=== PATIENT | female | born 1945 | race Caucasian/White ===

== ENCOUNTER 2020-06-08 13:37 | Inpatient (IN) | payer MEDICARE ==
[2020-06-08] MEDS ORDERED: SODIUM CHLORIDE 0.9% 500 ML 500 ML IV STA (14:31)
--- NOTE | 2020-06-08 14:35 | ED ---
General Adult HPI <Justice Stockton - Last Filed: 06/08/20 15:59> - General Source: patient Mode of arrival: wheelchair Limitations: no limitations <Jesus Bright - Last Filed: 06/08/20 19:04> - General Chief complaint: Weakness Stated complaint: Poss Stroke Time Seen by Provider: 06/08/20 14:06 - History of Present Illness Initial comments: 75-year-old female with a past medical history of diabetes mellitus, hypertension presents to the emergency room for a chief complaint of right leg weakness. Patient states that 2 days ago she was standing at her kitchen sink. States her right leg became weak and buckled. Patient thought her left leg also felt somewhat weak however that resolved. Patient states her right leg has remained weak and has continued to buckle on her throughout the day yesterday. She figured she would give it yesterday to see if it improved. However since it did not get better this morning she called her doctor who recommended she come to the emergency room. Patient denies taking any blood thinners. Patient denies any other concerning symptoms.Patient has no other complaints at this time including shortness of breath, chest pain, abdominal pain, nausea or vomiting, headache, or visual changes. (Jesus Bright) - Related Data Home Medications Medication Instructions Recorded Confirmed Metoprolol Tartrate [Lopressor] 100 mg PO BID 06/08/20 06/08/20 Simvastatin [Zocor] 20 mg PO HS 06/08/20 06/08/20 amLODIPine BESYLATE [Norvasc] 2.5 mg PO DAILY 06/08/20 06/08/20 glipiZIDE [Glucotrol] 10 mg PO BID 06/08/20 06/08/20 lisinopriL 40 mg PO HS 06/08/20 06/08/20 metFORMIN HCL 1,000 mg PO BID 06/08/20 06/08/20 Allergies Allergy/AdvReac Type Severity Reaction Status Date / Time Penicillins Allergy Rash/Hives Verified 06/08/20 15:51 Review of Systems ROS Other: All systems not noted in ROS Statement are negative. <Justice Stockton - Last Filed: 06/08/20 15:59> ROS Other: All systems not noted in ROS Statement are negative. <Kaila,Jesus P - Last Filed: 06/08/20 19:04> ROS Statement: Those systems with pertinent positive or pertinent negative responses have been documented in the HPI. Past Medical History Past Medical History: Diabetes Mellitus, Hypertension History of Any Multi-Drug Resistant Organisms: None Reported Past Surgical History: Hysterectomy Past Psychological History: No Psychological Hx Reported Smoking Status: Former smoker Past Alcohol Use History: None Reported Past Drug Use History: None Reported <Jesus Bright P - Last Filed: 06/08/20 19:04> General Exam Limitations: no limitations General appearance: alert, in no apparent distress Head exam: Present: atraumatic, normal inspection Eye exam: Present: normal appearance, PERRL, EOMI. Absent: scleral icterus, co njunctival injection ENT exam: Present: normal exam, mucous membranes moist Neck exam: Present: normal inspection, full ROM. Absent: tenderness, meni ngismus, lymphadenopathy Respiratory exam: Present: normal lung sounds bilaterally. Absent: respiratory distress, wheezes, rales, rhonchi, stridor Cardiovascular Exam: Present: regular rate, normal rhythm, normal heart sounds. Absent: systolic murmur, diastolic murmur, rubs, gallop, clicks GI/Abdominal exam: Present: soft, normal bowel sounds. Absent: distended, tenderness, guarding, rebound, rigid Extremities exam: Present: normal capillary refill (Capillary refill less than 2 seconds, DP pulse 2+ right lower extremity) Neurological exam: Present: alert, oriented X3. Absent: normal gait (Unable to bear weight on the right leg) Expanded Patient oriented to: Present: person, place, time Speech: Present: fluid speech Cranial nerves: EOM's Intact: Normal, Tongue Deviation: Normal, Nystagmus: Normal, Facial Sensation: Normal Cerebellar function: Finger to Nose: Normal Upper motor neuron: Pronator Drift: Normal Sensory exam: Upper Extremity Light Touch: Normal, Upper Extremity Pin Prick: Normal, Lower Extremity Light Touch: Normal, Lower Extremity Pin Prick: Normal Motor strength exam: RUE: 5, LUE: 5, RLE: 3, LLE: 5 Eye Response: (4) open spontaneously Motor Response: (6) obeys commands Verbal Response: (5) oriented <Jesus Bright P - Last Filed: 06/08/20 19:04> Course <Justice Stockton - Last Filed: 06/08/20 15:59> Vital Signs 06/08/20 06/08/20 06/08/20 13:44 14:20 15:13 Temperature 98 F Pulse Rate 102 H 94 98 Respiratory 18 16 16 Rate Blood Pressure 180/92 186/107 161/117 O2 Sat by Pulse 99 98 97 Oximetry 06/08/20 06/08/20 17:15 17:33 Temperature Pulse Rate 87 91 Respiratory 16 16 Rate Blood Pressure 193/109 174/98 O2 Sat by Pulse 98 98 Oximetry - Reevaluation(s) Reevaluation #1: 06/08/20 16:02 75-year-old female with history and exam suggestive of CVA. She has an NIH of 1. She has been symptomatic for 2 days, along outside of TPA window. CT is negative for intracranial hemorrhage. She's given an aspirin in the emergency department. Given the new onset atrial fibrillation I did discuss case with Dr. Townsend who recommends heparin, no bolus. Patient will be admitted with both cardiology and neurology on consult. (Justice Stockton) EKG Findings - EKG Comments: EKG Findings:: Atrial fibrillation, ventricular rate 96, QRS duration 134, QTc 469 <Jesus Bright - Last Filed: 06/08/20 19:04> Medical Decision Making - Lab Data Result diagrams: 06/08/20 14:33 06/08/20 14:33 <Justice Stockton - Last Filed: 06/08/20 15:59> - Lab Data Result diagrams: 06/08/20 14:33 06/08/20 14:33 <Jesus Bright - Last Filed: 06/08/20 19:04> - Medical Decision Making Vitals are stable. Patient hypertensive which she does have a history of. CBC unremarkable. CMP does show hyperglycemia. Patient has a history of diabetes. EKG patient was found to be in atrial fibrillation. No history of this. Patient is not on any blood thinners. Troponin negative. Chest x-ray unremarkable. CT brain is normal. Given physical exam findings of weakness in the right leg and new-onset atrial fibrillation patient will be admitted for further management. Neurology consulted. (Jesus Bright) - Lab Data Lab Results 06/08/20 06/08/20 06/08/20 Range/Units 14:33 14:33 14:33 WBC 9.7 (3.8-10.6) k/uL RBC 4.54 (3.80-5.40) m/uL Hgb 13.4 (11.4-16.0) gm/dL Hct 38.5 (34.0-46.0) % MCV 85.0 (80.0-100.0) fL MCH 29.6 (25.0-35.0) pg MCHC 34.8 (31.0-37.0) g/dL RDW 13.7 (11.5-15.5) % Plt Count 359 (150-450) k/uL MPV 7.2 Neutrophils % 82 % Lymphocytes % 12 % Monocytes % 4 % Eosinophils % 1 % Basophils % 1 % Neutrophils # 8.0 H (1.3-7.7) k/uL Lymphocytes # 1.1 (1.0-4.8) k/uL Monocytes # 0.4 (0-1.0) k/uL Eosinophils # 0.1 (0-0.7) k/uL Basophils # 0.1 (0-0.2) k/uL PT 10.4 (9.0-12.0) sec INR 1.0 (<1.2) APTT 23.7 (22.0-30.0) sec Sodium 130 L (137-145) mmol/L Potassium 4.5 (3.5-5.1) mmol/L Chloride 91 L (98-107) mmol/L Carbon Dioxide 25 (22-30) mmol/L Anion Gap 14 mmol/L BUN 20 H (7-17) mg/dL Creatinine 0.84 (0.52-1.04) mg/dL Est GFR (CKD-EPI)AfAm 78 (>60 ml/min/1.73 sqM) Est GFR (CKD-EPI)NonAf 67 (>60 ml/min/1.73 sqM) Glucose 309 H (74-99) mg/dL Calcium 10.6 H (8.4-10.2) mg/dL Total Bilirubin 1.3 (0.2-1.3) mg/dL AST 30 (14-36) U/L ALT 19 (4-34) U/L Alkaline Phosphatase 81 (38-126) U/L Troponin I (0.000-0.034) ng/mL Total Protein 9.2 H (6.3-8.2) g/dL Albumin 4.3 (3.5-5.0) g/dL 06/08/20 Range/Units 14:33 WBC (3.8-10.6) k/uL RBC (3.80-5.40) m/uL Hgb (11.4-16.0) gm/dL Hct (34.0-46.0) % MCV (80.0-100.0) fL MCH (25.0-35.0) pg MCHC (31.0-37.0) g/dL RDW (11.5-15.5) % Plt Count (150-450) k/uL MPV Neutrophils % % Lymphocytes % % Monocytes % % Eosinophils % % Basophils % % Neutrophils # (1.3-7.7) k/uL Lymphocytes # (1.0-4.8) k/uL Monocytes # (0-1.0) k/uL Eosinophils # (0-0.7) k/uL Basophils # (0-0.2) k/uL PT (9.0-12.0) sec INR (<1.2) APTT (22.0-30.0) sec Sodium (137-145) mmol/L Potassium (3.5-5.1) mmol/L Chloride (98-107) mmol/L Carbon Dioxide (22-30) mmol/L Anion Gap mmol/L BUN (7-17) mg/dL Creatinine (0.52-1.04) mg/dL Est GFR (CKD-EPI)AfAm (>60 ml/min/1.73 sqM) Est GFR (CKD-EPI)NonAf (>60 ml/min/1.73 sqM) Glucose (74-99) mg/dL Calcium (8.4-10.2) mg/dL Total Bilirubin (0.2-1.3) mg/dL AST (14-36) U/L ALT (4-34) U/L Alkaline Phosphatase (38-126) U/L Troponin I <0.012 (0.000-0.034) ng/mL Total Protein (6.3-8.2) g/dL Albumin (3.5-5.0) g/dL Critical Care Time Critical Care Time: Yes Total Critical Care Time: 35 <Justice Stockton - Last Filed: 06/08/20 15:59> Disposition Is patient prescribed a controlled substance at d/c from ED?: No Decision to Admit Reason: Admit from EC Decision Date: 06/08/20 Decision Time: 16:04 <Justice Stockton - Last Filed: 06/08/20 15:59> Is patient prescribed a controlled substance at d/c from ED?: No <Jesus Bright - Last Filed: 06/08/20 19:04> Clinical Impression: CVA (cerebral vascular accident), New onset a-fib Disposition: ADMITTED IP TO THIS [facility] Condition: Stable
[2020-06-08 14:37] LABS: WBC 9.7 k/uL (3.8-10.6)
[2020-06-08 14:38] LABS: Basophils # (A) 0.1 k/uL (0-0.2); Basophils % (A) 1 %; Eosinophils # (A) 0.1 k/uL (0-0.7); Eosinophils % (A) 1 %; HCT 38.5 % (34.0-46.0); HGB 13.4 gm/dL (11.4-16.0); Lymphocytes # (A) 1.1 k/uL (1.0-4.8); Lymphocytes % (A) 12 %; MCH 29.6 pg (25.0-35.0); MCHC 34.8 g/dL (31.0-37.0); Mean Platelet Volume 7.2; Monocytes # (A) 0.4 k/uL (0-1.0); Monocytes % (A) 4 %; Neutrophils % (A) 82 %; Platelet Count 359 k/uL (150-450); RBC 4.54 m/uL (3.80-5.40); RDW 13.7 % (11.5-15.5)
[2020-06-08 14:49] LABS: Albumin 4.3 g/dL (3.5-5.0); Calcium 10.6 mg/dL (8.4-10.2); Potassium 4.5 mmol/L (3.5-5.1); Total Bilirubin 1.3 mg/dL (0.2-1.3); Total Protein 9.2 g/dL (6.3-8.2)
[2020-06-08 14:51] LABS: Partial Thromboplastin Time 23.7 sec (22.0-30.0); Prothrombin Time 10.4 sec (9.0-12.0)
--- NOTE | 2020-06-08 15:15 | CT ---
EXAMINATION TYPE: CT brain wo con DATE OF EXAM: 06/08/2020 COMPARISON: None INDICATION: Unsteady gait. DLP: 1076.4 mGycm, Automated exposure control for dose reduction was used. CONTRAST: None CT of the brain is performed utilizing 3 mm thick sections through the posterior fossa and 3 mm thick sections through the remaining calvarium. Study is performed within 24 hours of arrival to the hosp ital. No abnormal hyperdensity is present to suggest an acute intracranial hemorrhage. No mass lesion is evident. No acute infarcts are evident. Periventricular white matter hypodensity is present, likely on the bas is of chronic white matter ischemic changes Ventricles and sulci are appropriate for the patient age. Paranasal sinuses and mastoid air cells within the [id number] are clear. Left septal deviation is present. IMPRESSIONS: 1. Normal CT Brain
--- NOTE | 2020-06-08 15:47 | XR ---
EXAMINATION TYPE: XR chest 2V DATE OF EXAM: 06/08/2020 COMPARISON: None HISTORY: 75-year-old female confusion, altered mental status TECHNIQUE: AP and lateral views FINDINGS: Heart borderline in size. Atherosclerotic calcifications throughout the aorta. Mild hyperinflation. N o consolidation or pleural effusion. IMPRESSION: Borderline heart size. Mild hyperinflation may relate to depth of inspiration or underlying emphysema . Otherwise, no acute process seen.
[2020-06-08] MEDS ORDERED: ASPIRIN 325 MG TAB PO STA (15:55)
[2020-06-08] MEDS ORDERED: HEPARIN SODIUM,PORCINE 5,000 UNIT/ML 1 ML VIAL IV PRN (15:59)
[2020-06-08] MEDS: SODIUM CHLORIDE 0.9% 1,000 ML IV SCH (16:13)
[2020-06-08] MEDS: HEPARIN SOD,PORK IN 0.45% NACL 25,000 UNIT in 0.45% NACL 1 250ML.BAG IV SCH (16:14)
--- NOTE | 2020-06-08 16:54 | P.HPIM ---
History of Present Illness H&P Date: 06/08/20 Chief Complaint: Right lower extremity weakness This is a 75-year-old female with past medical history noted below significant for underlying diabetes and essential hypertension who presented to the emergency room with a chief complaint of right lower extremity weakness. Ervin de souza said that her symptoms started yesterday when she felt that her legs ''buckled up''on her and was not able to stand. She reported some weakness in both left and right leg worse in the right leg. She said that she went to bed and today she got up and noted that she was having difficulty walking around with some weakness in her right lower extremity so she decided to come to the emergency room for further evaluation. Patient denies any pain. No fall or trauma. No numbness or tingling anywhere in her body. No weakness otherwise anywhere in her body. Patient was evaluated in the ER and was found to be in atrial fibrillation which is a new onset diagnosis. Heart rate was well contro lled. Patient denies any abnormal heart rhythm in the past. She currently denies any weakness in her lower extremities. On my physical exam she had 5 out of 5 strength throughout. Review of Systems Review of system: 14 points review of systems were obtained and were negative except to what were mentioned in the HPI. Past Medical History Past Medical History: Diabetes Mellitus, Hypertension History of Any Multi-Drug Resistant Organisms: None Reported Past Surgical History: Hysterectomy Past Psychological History: No Psychological Hx Reported Smoking Status: Former smoker Past Alcohol Use History: None Reported Past Drug Use History: None Reported Medications and Allergies Home Medications Medication Instructions Recorded Confirmed Type Metoprolol Tartrate [Lopressor] 100 mg PO BID 06/08/20 06/08/20 History Simvastatin [Zocor] 20 mg PO HS 06/08/20 06/08/20 History amLODIPine BESYLATE [Norvasc] 2.5 mg PO DAILY 06/08/20 06/08/20 History glipiZIDE [Glucotrol] 10 mg PO BID 06/08/20 06/08/20 History lisinopriL 40 mg PO HS 06/08/20 06/08/20 History metFORMIN HCL 1,000 mg PO BID 06/08/20 06/08/20 History Allergies Allergy/AdvReac Type Severity Reaction Status Date / Time Penicillins Allergy Rash/Hives Verified 06/08/20 15:51 Physical Exam Vitals: Vital Signs Temp Pulse Resp BP Pulse Ox 06/08/20 15:13 98 16 161/117 97 06/08/20 14:20 94 16 186/107 98 06/08/20 13:44 98 F 102 H 18 180/92 99 Intake and Output 06/08/20 06/08/20 06/08/20 06:59 14:59 22:59 Other: Weight 55.338 kg General: The patient is awake and alert, in no distress Eye: there is normal conjunctiva bilaterally. Neck: The neck is supple, there is no JVD. Cardiovascular: Normal S1-S2, no S3-S4, no murmurs. Respiratory: Lungs clear to auscultation bilaterally Gastrointestinal: Abdomen is soft, nontender Musculoskeletal: There is no pedal edema. Neurological:. Speech is normal. Skin: Skin is warm and dry Results CBC & Chem 7: 06/08/20 14:33 06/08/20 14:33 Labs: Abnormal Lab Results - Last 24 Hours (Table) 06/08/20 06/08/20 Range/Units 14:33 14:33 Neutrophils # 8.0 H (1.3-7.7) k/uL Sodium 130 L (137-145) mmol/L Chloride 91 L (98-107) mmol/L BUN 20 H (7-17) mg/dL Glucose 309 H (74-99) mg/dL Calcium 10.6 H (8.4-10.2) mg/dL Total Protein 9.2 H (6.3-8.2) g/dL Assessment and Plan Assessment: 1. Right lower extremity weakness, now resolved. Exact etiology unclear. Doubt CVA. Computed tomography scan of the head in the ER with no acute findings. Patient denies any low back pain or fall. Neurology consulted for further evaluation. PT/OT consultation 2. New onset atrial fibrillation, rate well controlled. Started on anticoagulation with IV heparin. Continue home dose of metoprolol 100 mg twice daily. 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 I would obtain echocardiogram to evaluate cardiac structure. Check thyroid function test. Cardiology consulted for further evaluation. 3. Hypertensive urgency, I would resume her home regimen of amlodipine, li sinopril, and metoprolol. Continue to monitor closely. 4. Type 2 diabetes, hold oral agents and continue sliding scale insulin. Check A1c. 5. Hyperlipidemia, on Zocor at home. I would switch her to Lipitor 40 mg at bedtime. Check fasting lipid profile in the morning. 6. Essential hypertension 7. DVT prophylaxis currently on IV heparin 8. CODE STATUS: Patient was like to be a full code. Patient's is a [employer] and does not want any blood transfusions whatsoever.
[2020-06-08] MEDS: amLODIPine 2.5 MG TAB PO SCH (17:45)
[2020-06-08 17:46] LABS: Glucose,Whole Blood 180 mg/dL (75-99)
[2020-06-08] MEDS: INSULIN ASPART (NovoLOG) 100 UNIT/ML VIAL SQ SCH ×2 (17:48→21:13)
--- NOTE | 2020-06-08 19:14 | US ---
EXAMINATION TYPE: US carotid duplex BILAT DATE OF EXAM: 06/08/2020 COMPARISON: NONE CLINICAL HISTORY: TIA. EXAM MEASUREMENTS: RIGHT: Peak Systolic Velocity (PSV) cm/sec ----- Right CCA: 51.3 ----- Right ICA: 58.2 ----- Right ECA: 70.3 ICA/CCA ratio: 1.2 RIGHT: End Diastole cm/sec ----- Right CCA: 10.3 ----- Right ICA: 12.1 ----- Right ECA: 0 LEFT: Peak Systolic Velocity (PSV) cm/sec ----- Left CCA: 63.8 ----- Left ICA: 125 ----- Left ECA: 65.6 ICA/CCA ratio: 2.0 LEFT: End Diastole cm/sec ----- Left CCA: 11.9 ----- Left ICA: 27.9 ----- Left ECA: 0 VERTEBRALS (direction of flow): Right Vertebral: Antegrade Left Vertebral: Antegrade Rhythm: Normal IMPRESSION: 1. LICA: Findings suggest 50-69% luminal diameter narrowing. 2. Moderate amount of plaque visualized, left greater than right.
[2020-06-08 20:53] LABS: Glucose,Whole Blood 125 mg/dL (75-99)
[2020-06-08] MEDS: ATORVASTATIN 40 MG TAB PO SCH (21:12)
[2020-06-08] MEDS: METOPROLOL TARTRATE 50 MG TAB PO SCH (21:12)
[2020-06-08] MEDS: lisinopriL 20 MG TAB PO SCH (21:12)
[2020-06-08 21:49] VITALS: RESP 18
[2020-06-09] MEDS: SODIUM CHLORIDE 0.9% 1,000 ML IV SCH (03:03)
[2020-06-09 06:17] LABS: Glucose,Whole Blood 180 mg/dL (75-99)
[2020-06-09 06:18] LABS: Basophils % (A) 1 %; Eosinophils # (A) 0.1 k/uL (0-0.7); Eosinophils % (A) 2 %; HCT 36.5 % (34.0-46.0); HGB 12.3 gm/dL (11.4-16.0); Lymphocytes # (A) 1.4 k/uL (1.0-4.8); Lymphocytes % (A) 27 %; MCHC 33.7 g/dL (31.0-37.0); MCV 86.2 fL (80.0-100.0); Mean Platelet Volume 6.9; Monocytes # (A) 0.3 k/uL (0-1.0); Monocytes % (A) 6 %; Neutrophils # (A) 3.2 k/uL (1.3-7.7); Neutrophils % (A) 61 %; Platelet Count 304 k/uL (150-450); RBC 4.24 m/uL (3.80-5.40); RDW 13.7 % (11.5-15.5); WBC 5.2 k/uL (3.8-10.6)
[2020-06-09] MEDS: INSULIN ASPART (NovoLOG) 100 UNIT/ML VIAL SQ SCH ×4 (06:52→21:51)
[2020-06-09 07:13] LABS: Magnesium 1.3 mg/dL (1.6-2.3)
[2020-06-09] MEDS ORDERED: ASPIRIN 325 MG TAB PO SCH (09:00)
[2020-06-09] MEDS: amLODIPine 2.5 MG TAB PO SCH (09:25)
[2020-06-09] MEDS: METOPROLOL TARTRATE 50 MG TAB PO SCH ×2 (09:25→20:07)
[2020-06-09] MEDS: MAGNESIUM SULFATE-D5W PMX 1 GM in DEXTROSE/WATER 1 100ML.BAG IVPB SCH ×2 (09:25→11:14)
--- NOTE | 2020-06-09 11:00 | ECHOF ---
Referral Reason:New onset A. fib MEASUREMENTS -------- HEIGHT: 167.6 cm WEIGHT: 54.9 kg BP: RVIDd: 2.1 cm (< 3.3) IVSd: 1.1 cm (0.6 - 1.1) LVIDd: 3.5 cm (3.9 - 5.3) LVPWd: 1.2 cm (0.6 - 1.1) IVSs: 1.8 cm LVIDs: 2.0 cm LVPWs: 1.6 cm LAESV Index (A-L): 14.22 ml/m Ao Diam: 2.9 cm (2.0 - 3.7) AV Cusp: 1.5 cm (1.5 - 2.6) LA Diam: 3.6 cm (2.7 - 3.8) MV EXCURSION: 16.095 mm (> 18.000) MV EF SLOPE: 137 mm/s (70 - 150) EPSS: 0.3 cm RAP: 5.00 mmHg RVSP: 15.08 mmHg FINDINGS -------- Atrial fibrillation. This was a technically adequate study. The left ventricular size is normal. There is borderline concentric left ventricular hypertrophy. Overall left ventricular systolic function is normal with, an EF between 55 - 60 %. Left ventricul ar fillimg pressure cannot be estimated due to Atrial fibrillation. The right ventricle is normal in size. Normal LA size by volume 22+/-6 ml/m2. The right atrial size is normal. Interatrial and interventricular septum intact. There is mild aortic valve sclerosis. The mitral valve leaflets are mildly thickened. Mild mitral regurgitation is present. The tricuspid valve appears structurally normal. Mild tricuspid regurgitation present. Right vent ricular systolic pressure is normal at < 35 mmHg. There is no pulmonic regurgitation present. The aortic root size is normal. Normal inferior vena cava with normal inspiratory collapse consistent with estimated right atrial pre ssure of 5 mmHg. There is no pericardial effusion. CONCLUSIONS -------- 1. There is borderline concentric left ventricular hypertrophy. 2. Overall left ventricular systolic function is normal with, an EF between 55 - 60 %. 3. Normal LA size by volume 22+/-6 ml/m2. 4. There is mild aortic valve sclerosis. 5. The mitral valve leaflets are mildly thickened. 6. Mild mitral regurgitation is present. 7. Mild tricuspid regurgitation present. 8. There is no pericardial effusion. PHARMACEUTICAL DEVELOPMENT TECHNICIAN: Michelle Camp RDCS
[2020-06-09] MEDS: FAMOTIDINE 20 MG TAB PO SCH ×2 (11:14→20:08)
[2020-06-09 12:16] LABS: Glucose,Whole Blood 286 mg/dL (75-99)
--- NOTE | 2020-06-09 12:28 | P.CNNES ---
History of Present Illness Consult date: 06/09/20 Requesting physician: Justice Stockton Reason for Consult: CVA History of Present Illness: Patient is a 75-year-old female with history of diabetes, hypertension came to the hospital yesterday at 1:37 PM for right leg weakness. Patient states that 2 days ago on 06/06/2020 at around 5 PM she was tending at the kitchen, when her right leg gave out. Shortly after left leg also started giving out. She started falling but her caught her. Her helped her sit in the chair. She noticed numbness in the right foot extending to below the knee on the right side. She denied any slurred speech facial droop, symptoms in the upper extremities whatsoever, headache or vertigo. However since then she has not been able to put weight on right leg when she tries to walk. Patient did not seek any medical attention. As the symptoms persisted, patient spoke to her primary physician yesterday, who recommended her to come to ER. Vital signs arrival blood pressure 180/92, pulse rate 102. Temperature 98.0. CT head normal. On my review, there is significant small vessel disease noted in bihemispheric region. A small subacute CVA in the left frontal cortical parasagittal region in the left CALIN territory cannot be ruled out. Chest x-ray showed borderline heart size. Mild hyperinflation may related to depth of inspiration or underlying emphysema. Otherwise no acute process. Carotid Dop pler shows left ICA stenosis 50-69%. Moderate amount of plaque visualized left greater than right. EKG showed atrial fibrillation with premature ventricular or aberrantly conducted complexes. Nonspecific intraventricular block. Blood test shows normal CBC, PT/PTT, sodium 1:30 potassium 4.5, normal renal functions. Hepatic panel normal. Shah virus PCR negative. Troponin negative. Patient's total cholesterol is 135, LDL 80, HDL 36, triglycerides 95. Patient has history of hypertension, diabetes for 10 years never smoked does not drink alcohol. She does take aspirin 81 mg daily since she was diagnosed with diabetes. 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 Review of Systems Patient denies any symptoms whatsoever except for the symptoms mentioned in HPI. No headache, problem with the vision, hearing loss, hoarseness, sore throat dysphagia, chest pain, shortness of breath, wheezing or cough. Denies any neck or back pain. Past Medical History Past Medical History: Diabetes Mellitus, Hypertension History of Any Multi-Drug Resistant Organisms: None Reported Past Surgical History: Hysterectomy Past Anesthesia/Blood Transfusion Reactions: No Reported Reaction Additional Past Anesthesia/Blood Transfusion Reaction / Comment(s): Jehovahs witness; no blood transusions. Past Psychological History: No Psychological Hx Reported Smoking Status: Former smoker Past Alcohol Use History: None Reported Past Drug Use History: None Reported Additional Drug Use History / Comment(s): Stopped smoking 1992; was smoking a pack a day. Medications and Allergies Home Medications Medication Instructions Recorded Confirmed Type Metoprolol Tartrate [Lopressor] 100 mg PO BID 06/08/20 06/08/20 History Simvastatin [Zocor] 20 mg PO HS 06/08/20 06/08/20 History amLODIPine BESYLATE [Norvasc] 2.5 mg PO DAILY 06/08/20 06/08/20 History glipiZIDE [Glucotrol] 10 mg PO BID 06/08/20 06/08/20 History lisinopriL 40 mg PO HS 06/08/20 06/08/20 History metFORMIN HCL 1,000 mg PO BID 06/08/20 06/08/20 History Allergies Allergy/AdvReac Type Severity Reaction Status Date / Time Penicillins Allergy Rash/Hives Verified 06/08/20 15:51 Physical Examination - Vital Signs Vital Signs: Vital Signs Temp Pulse Pulse Pulse Resp BP BP 06/09/20 07:53 98.4 F 83 18 169/86 06/09/20 04:00 77 18 165/83 06/09/20 00:00 98.7 F 74 18 123/75 06/08/20 21:15 97.9 F 85 18 142/96 06/08/20 17:33 91 16 174/98 06/08/20 17:15 87 16 193/109 06/08/20 15:13 98 16 161/117 06/08/20 14:20 94 16 186/107 06/08/20 13:44 98 F 102 H 18 180/92 Pulse Ox 06/09/20 07:53 99 06/09/20 04:00 95 06/09/20 00:00 96 06/08/20 21:15 97 06/08/20 17:33 98 06/08/20 17:15 98 01/28/21 15:13 97 06/08/20 14:20 98 06/08/20 13:44 99 Intake and Output 06/08/20 06/09/20 06/09/20 22:59 06:59 14:59 Intake Total 49.033 Output Total 500 Balance 49.033 -500 Intake: Intake, IV Titration 49.033 Amount Heparin Sod,Pork in 0.45% 49.033 NaCl 25,000 unit In 0.45 % NaCl 1 250ml.bag @ 12 UNITS/KG/HR 6.641 mls/hr IV .Q24H [facility] Rx#: [id number] Output: Urine 500 Other: Voiding Method Bedside Commode # Voids 1 2 Weight 55.338 kg 55.1 kg On examination patient is an elderly female, very pleasant, in no acute distress. Patient is alert and awake oriented to time place and person. Speech and leg which functions are normal. Attention, concentration and fund of knowledge is adequate. On cranial examination pupils are round and reactive to light, visual enrique are full on confrontation, extraocular muscles are intact with no nystagmus. Face is symmetric, tongue protrudes to the midline. Palatal elevation and sensation normal, hearing and shoulder shrug normal, facial sensation is normal. On muscle strength testing there is no pronator drift and the strength is normal in arms distally and proximally. In the lower extremities her strength is normal in the left leg. In the right side ankle dorsiflexion is 4+ to 5-, there is hip flexion is 5-. Sensory to touch is equal, with no neglect on double simultaneous stimulation. No ataxia for [id number] testing. Patient is ataxic for [id number]-[id number] testing only on the right side. Deep tendon reflexes are 1+ in the upper limbs, 2 in the lower limbs and patient has Babinski only on the right side. Gait was deferred. On general examination there is no carotid bruit or murmur, peripheral pulses present. Abdomen soft nontender, chest is clear. Results - Laboratory Findings CBC and BMP: 06/09/20 05:32 06/08/20 14:33 Abnormal Lab Findings: Abnormal Labs 06/08/20 06/08/20 06/08/20 14:33 14:33 17:34 Neutrophils # 8.0 H APTT Sodium 130 L Chloride 91 L BUN 20 H Glucose 309 H POC Glucose (mg/dL) 180 H Calcium 10.6 H Magnesium Total Protein 9.2 H HDL Cholesterol 06/08/20 06/08/20 06/09/20 20:42 21:53 05:32 Neutrophils # APTT 30.3 H Sodium Chloride BUN Glucose POC Glucose (mg/dL) 125 H Calcium Magnesium 1.3 L Total Protein HDL Cholesterol 36 L 06/09/20 06/09/20 05:32 06:16 Neutrophils # APTT 57.7 H Sodium Chloride BUN Glucose POC Glucose (mg/dL) 180 H Calcium Magnesium Total Protein HDL Cholesterol Assessment and Plan Assessment: * Acute CVA, 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 Event is most likely cardioembolic from new onset atrial fibrillation * Hypertension * Diabetes Plan: * Patient has been started on heparin without bolus for stroke prevention related to atrial fibrillation. * MRI brain without contrast to localize CVA and rule out any hemorrhagic conversion. If negative, may start oral anticoagulants as recommended by fuel oil clerk. * 2-D echo showed atrial fibrillation. Left-ventricular size is normal. Borderline concentric LVH. Overall left ventricular systolic function is normal with EF 55-60%. Normal left atrial size. * Carotid Doppler showed 50-69% left ICA stenosis, moderate degree. Recommend follow-up ultrasound in one year. * Pepcid for gastric ulcer prophylaxis. * PT OT for right leg weakness.
--- NOTE | 2020-06-09 12:50 | P.CRDCN ---
History of Present Illness History of present illness: HISTORY OF PRESENTING ILLNESS This is a pleasant 75-year-old female past medical history significant for hypertension, diabetes mellitus, dyslipidemia and former nicotine dependenc e. She denies prior history of coronary artery disease and does not follow in the office with a educational fundraising director. We have been asked to see in consultation for new onset atrial fibrillation. She presented to the hospital with symptoms of right leg weakness that started approximately 2 days ago. Upon arrival to the emergency department CT was performed that was normal. She has been seen in evaluation by neurology and diagnosed with an acute CVA probably involving the left CALIN vascular territory. Most likely cardioembolic in nature. EKG on arrival revealed atrial fibrillation with controlled ventricular rate with incomplete right bundle branch block and nonspecific abnormalities. She contin ues to be in atrial fibrillation with controlled ventricular rate. She denies symptoms of chest pain, shortness of breath, dizziness or palpitations. Chest x-ray reveals mild hyperinflation related to underlying emphysema with otherwise no acute cardiopulmonary process. Carotid Doppler reveals left internal carotid artery with 50-69% luminal diameter narrowing and a moderate amount of plaque le ft greater than right. A cardiogram obtained reveals preserved LV systolic function with ejection fraction 55-60%, mild MR and mild TR noted. I refer data reviewed, CBC unremarkable, sodium 1:30, potassium 4.5, creatinine 0.84, magnesium 1.3, troponin negative 1, LDL 80 and TSH 2.92. Current daily cardiac medications include Lopressor 100 mg twice a day, simvastatin 20 mg at bedtime, amlodipine 2.5 mg daily and lisinopril 40 mg daily. REVIEW OF SYSTEMS At the time of my exam: CONSTITUTIONAL: Denies fever or chills. CARDIOVASCULAR: Denies chest pain, shortness of breath, orthopnea, PND or palpitations. RESPIRATORY: Denies cough. GASTROINTESTINAL: Denies abdominal pain, diarrhea, constipation, nausea or vomiting. MUSCULOSKELETAL: Complains of right lower extremity weakness. NEUROLOGIC: Denies numbness, tingling, headacbe or weakness. ENDOCRINE: Denies fatigue, weight change, polydipsia or polyurina. GENITOURINARY: Denies burning, hematuria or urgency with micturation. HEMATOLOGIC: Denies history of anemia or bleeding. PHYSICAL EXAMINATION Blood pressure 183/90 heart rate and 99 afebrile and maintaining oxygen saturation on room air. CONSTITUTIONAL: No apparent distress. HEENT: Head is normocephalic. Pupils are equal, round. Sclerae anicteric. Mucous membranes of the mouth are moist. No JVD. No carotid bruit. CHEST EXAMINATION: Lungs are clear to auscultation. No chest wall tenderness is noted on palpation or with deep breathing. HEART EXAMINATION: Irregular rate and rhythm. S1, S2 heard. No murmurs, gallops or rub. ABDOMEN: Soft, nontender. Positive bowel sounds. EXTREMITIES: 2+ peripheral pulses, no lower extremity edema and no calf tenderness. NEUROLOGIC EXAMINATION: Patient is awake, alert and oriented x3. ASSESSMENT New onset paroxysmal atrial fibrillation with controlled ventricular rate Acute CVA Hypomagnesemia Hypertension Dyslipidemia Diabetes mellitus PLAN Continue heparin infusion. We will discuss with neurology initiating long-term anticoagulation pending MRI findings. Continue Lopressor for rate control. Decrease aspirin to 81 mg daily. Replace magnesium per protocol. Further recommendations to follow based upon clinical course. Thank you kindly for this consultation. Nurse Practitioner note has been reviewed, I agree with a documented findings and plan of care. Patient was seen and examined. Past Medical History Past Medical History: Diabetes Mellitus, Hypertension History of Any Multi-Drug Resistant Organisms: None Reported Past Surgical History: Hysterectomy Past Anesthesia/Blood Transfusion Reactions: No Reported Reaction Additional Past Anesthesia/Blood Transfusion Reaction / Comment(s): Jehovahs witness; no blood transusions. Past Psychological History: No Psychological Hx Reported Smoking Status: Former smoker Past Alcohol Use History: None Reported Past Drug Use History: None Reported Additional Drug Use History / Comment(s): Stopped smoking 1992; was smoking a pack a day. Medications and Allergies Home Medications Medication Instructions Recorded Confirmed Type Metoprolol Tartrate [Lopressor] 100 mg PO BID 06/08/20 06/08/20 History Simvastatin [Zocor] 20 mg PO HS 06/08/20 06/08/20 History amLODIPine BESYLATE [Norvasc] 2.5 mg PO DAILY 06/08/20 06/08/20 History glipiZIDE [Glucotrol] 10 mg PO BID 06/08/20 06/08/20 History lisinopriL 40 mg PO HS 06/08/20 06/08/20 History metFORMIN HCL 1,000 mg PO BID 06/08/20 06/08/20 History Allergies Allergy/AdvReac Type Severity Reaction Status Date / Time Penicillins Allergy Rash/Hives Verified 06/08/20 15:51 Physical Exam Vitals: Vital Signs Temp Pulse Pulse Pulse Resp BP BP 06/09/20 11:13 79 18 183/90 06/09/20 07:53 98.4 F 83 18 169/86 06/09/20 04:00 77 18 165/83 06/09/20 00:00 98.7 F 74 18 123/75 06/08/20 21:15 97.9 F 85 18 142/96 06/08/20 17:33 91 16 174/98 06/08/20 17:15 87 16 193/109 06/08/20 15:13 98 16 161/117 06/08/20 14:20 94 16 186/107 06/08/20 13:44 98 F 102 H 18 180/92 Pulse Ox 06/09/20 11:13 97 06/09/20 07:53 99 06/09/20 04:00 95 06/09/20 00:00 96 06/08/20 21:15 97 06/08/20 17:33 98 06/08/20 17:15 98 06/08/20 15:13 97 06/08/20 14:20 98 06/08/20 13:44 99 Intake and Output 06/08/20 06/09/20 06/09/20 22:59 06:59 14:59 Intake Total 49.033 Output Total 500 Balance 49.033 -500 Intake: Intake, IV Titration 49.033 Amount Heparin Sod,Pork in 0.45% 49.033 NaCl 25,000 unit In 0.45 % NaCl 1 250ml.bag @ 12 UNITS/KG/HR 6.641 mls/hr IV .Q24H [facility] Rx#: [id number] Output: Urine 500 Other: Voiding Method Bedside Commode # Voids 1 2 Weight 55.338 kg 55.1 kg Results 06/09/20 05:32 06/08/20 14:33 Cardiac Enzymes 06/08/20 06/08/20 Range/Units 14:33 14:33 AST 30 (14-36) U/L Troponin I <0.012 (0.000-0.034) ng/mL Coagulation 06/08/20 06/08/20 06/09/20 Range/Units 14:33 21:53 05:32 PT 10.4 (9.0-12.0) sec APTT 23.7 30.3 H 57.7 H (22.0-30.0) sec Lipids 06/09/20 Range/Units 05:32 Triglycerides 95 (<150) mg/dL Cholesterol 135 (<200) mg/dL HDL Cholesterol 36 L (40-60) mg/dL CBC 06/08/20 06/09/20 Range/Units 14:33 05:32 WBC 9.7 5.2 (3.8-10.6) k/uL RBC 4.54 4.24 (3.80-5.40) m/uL Hgb 13.4 12.3 (11.4-16.0) gm/dL Hct 38.5 36.5 (34.0-46.0) % Plt Count 359 304 (150-450) k/uL Comprehensive Metabolic Panel 06/08/20 Range/Units 14:33 Sodium 130 L (137-145) mmol/L Potassium 4.5 (3.5-5.1) mmol/L Chloride 91 L (98-107) mmol/L Carbon Dioxide 25 (22-30) mmol/L BUN 20 H (7-17) mg/dL Creatinine 0.84 (0.52-1.04) mg/dL Glucose 309 H (74-99) mg/dL Calcium 10.6 H (8.4-10.2) mg/dL AST 30 (14-36) U/L ALT 19 (4-34) U/L Alkaline Phosphatase 81 (38-126) U/L Total Protein 9.2 H (6.3-8.2) g/dL Albumin 4.3 (3.5-5.0) g/dL Current Medications Generic Name Dose Route Start Last Admin Trade Name Freq PRN Reason Stop Dose Admin Amlodipine Besylate 2.5 mg 06/08/20 17:00 06/09/20 09:25 Amlodipine 2.5 Mg Tab PO 2.5 mg DAILY APRYL Administration Aspirin 81 mg 06/10/20 09:00 Aspirin 81 Mg PO DAILY [facility] Atorvastatin Calcium 40 mg 06/08/20 21:00 06/08/20 21:12 Atorvastatin 40 Mg Tab PO 40 mg HS APRYL Administration Famotidine 20 mg 06/09/20 10:00 06/09/20 11:14 Famotidine 20 Mg Tab PO 20 mg BID APRYL Administration Heparin Sodium (Porcine) 0 unit 06/08/20 15:59 Heparin Sodium,Porcine 5,000 Unit/Ml 1 Ml Vial IV PER PROTOCOL PRN Low PTT Protocol Heparin Sodium/Sodium Chloride 250 mls @ 6.641 mls/hr 06/08/20 16:00 06/08/20 23:37 25,000 unit/ Sodium Chloride IV 15 units/kg/hr .Q24H APRYL 8.301 mls/hr Titration Protocol 12 UNITS/KG/HR Insulin Aspart 0 unit 06/08/20 17:30 06/09/20 12:24 Insulin Aspart (Novolog) 100 Unit/Ml Vial SQ 5 unit ACHS APRYL Administration Protocol Lisinopril 40 mg 06/08/20 21:00 06/08/20 21:12 Lisinopril 20 Mg Tab PO 40 mg HS APRYL Administration Metoprolol Tartrate 100 mg 06/08/20 21:00 06/09/20 09:25 Metoprolol Tartrate 50 Mg Tab PO 100 mg BID APRYL Administration Intake and Output 06/08/20 06/09/20 06/09/20 22:59 06:59 14:59 Intake Total 49.033 Output Total 500 Balance 49.033 -500 Intake: Intake, IV Titration 49.033 Amount Heparin Sod,Pork in 0.45% 49.033 NaCl 25,000 unit In 0.45 % NaCl 1 250ml.bag @ 12 UNITS/KG/HR 6.641 mls/hr IV .Q24H [facility] Rx#: [id number] Output: Urine 500 Other: Voiding Method Bedside Commode # Voids 1 2 Weight 55.338 kg 55.1 kg 06/09/20 05:32 06/08/20 14:33
--- NOTE | 2020-06-09 13:38 | P.PN ---
Subjective Progress Note Date: 06/09/20 Patient is doing well today. She is complaining of some difficulty walking around saying that she is not steady on her right lower extremity. There is no actual weakness appreciated on exam. No change since yesterday. Objective - Vital Signs Vital signs: Vital Signs Temp 98.4 F 06/09/20 07:53 Pulse 79 06/09/20 11:13 Resp 18 06/09/20 11:13 BP 183/90 06/09/20 11:13 Pulse Ox 97 06/09/20 11:13 Intake & Output 06/08/20 06/09/20 06/09/20 18:59 06:59 18:59 Intake Total 49.033 Output Total 500 Balance 49.033 -500 Weight 55.338 kg 55.1 kg Intake: Intake, IV Titration 49.033 Amount Heparin Sod,Pork in 0.45% 49.033 NaCl 25,000 unit In 0.45 % NaCl 1 250ml.bag @ 12 UNITS/KG/HR 6.641 mls/hr IV .Q24H [facility] Rx#: [id number] Output: Urine 500 Other: Voiding Method Bedside Commode # Voids 2 - Exam General: The patient is awake and alert, in no distress Eye: there is normal conjunctiva bilaterally. Neck: The neck is supple, there is no JVD. Cardiovascular: Normal S1-S2, no S3-S4, no murmurs. Respiratory: Lungs clear to auscultation bilaterally Gastrointestinal: Abdomen is soft, nontender Musculoskeletal: There is no pedal edema. Neurological:. Speech is normal. Skin: Skin is warm and dry - Labs CBC & Chem 7: 06/09/20 05:32 06/08/20 14:33 Labs: Abnormal Lab Results - Last 24 Hours (Table) 06/08/20 06/08/20 06/08/20 Range/Units 14:33 14:33 17:34 Neutrophils # 8.0 H (1.3-7.7) k/uL APTT (22.0-30.0) sec Sodium 130 L (137-145) mmol/L Chloride 91 L (98-107) mmol/L BUN 20 H (7-17) mg/dL Glucose 309 H (74-99) mg/dL POC Glucose (mg/dL) 180 H (75-99) mg/dL Calcium 10.6 H (8.4-10.2) mg/dL Magnesium (1.6-2.3) mg/dL Total Protein 9.2 H (6.3-8.2) g/dL HDL Cholesterol (40-60) mg/dL 06/08/20 06/08/20 06/09/20 Range/Units 20:42 21:53 05:32 Neutrophils # (1.3-7.7) k/uL APTT 30.3 H (22.0-30.0) sec Sodium (137-145) mmol/L Chloride (98-107) mmol/L BUN (7-17) mg/dL Glucose (74-99) mg/dL POC Glucose (mg/dL) 125 H (75-99) mg/dL Calcium (8.4-10.2) mg/dL Magnesium 1.3 L (1.6-2.3) mg/dL Total Protein (6.3-8.2) g/dL HDL Cholesterol 36 L (40-60) mg/dL 06/09/20 06/09/20 06/09/20 Range/Units 05:32 06:16 12:01 Neutrophils # (1.3-7.7) k/uL APTT 57.7 H (22.0-30.0) sec Sodium (137-145) mmol/L Chloride (98-107) mmol/L BUN (7-17) mg/dL Glucose (74-99) mg/dL POC Glucose (mg/dL) 180 H 286 H (75-99) mg/dL Calcium (8.4-10.2) mg/dL Magnesium (1.6-2.3) mg/dL Total Protein (6.3-8.2) g/dL HDL Cholesterol (40-60) mg/dL Assessment and Plan Assessment: 1. Right lower extremity weakness, now resolved. Exact etiology unclear. Neurology suspected CVA. Computed tomography scan of the head in the ER with no acute findings. MRI ordered and pending. Patient denies any low back pain or fall. Echocardiogram showed preserved ejection fraction with no intracardiac source for possible stroke. 2. New onset atrial fibrillation, rate well controlled. Started on antico agulation with IV heparin. Continue home dose of metoprolol 100 mg twice daily. Thyroid function test within normal range. Patient was seen and evaluated by cardiology, appreciate recommendations. 3. Hypertensive urgency, blood pressure still not well controlled. Currently on her home regimen. We will check manual blood pressure and adjust as needed. 4. Type 2 diabetes, hold oral agents and continue sliding scale insulin. A1c pending 5. Hyperlipidemia, on Zocor at home. I would switch her to Lipitor 40 mg at bedtime. fasting lipid profile showed total cholesterol of 135, LDL 80 6. Essential hypertension 7. Hypomagnesemia, replaced. Repeat Work in the morning 8. DVT prophylaxis currently on IV heparin 9. CODE STATUS: Patient was like to be a full code. Patient's is a Druze and does not want any blood transfusions whatsoever. Today, I reviewed her lab work results and medication orders. Appreciate sap portal consultant's recommendations. Continue PT/OT. Repeat lab work in the morning. Transition to oral anticoagulation tomorrow. Anticipate discharge home within the next day or 2.
[2020-06-09 14:47] LABS: Hemoglobin A1C 9.3 % (4.0-6.0)
--- NOTE | 2020-06-09 15:40 | MR ---
MR brain without contrast HISTORY: Cerebrovascular accident, neuro deficit Multiplanar multisequence imaging through the brain Correlation CT brain 06/08/2020 There is restricted diffusion, foci of corresponding abnormal signal are present on inversion recover y T2-weighted sequences within the left parietal lobe, area cortical abnormal signal measures approxi mate 17 mm in greatest transverse dimension corresponding to head CT. Confluent and scattered hyperin tensity is present within the deep white matter, pericallosal white matter, subcortical white matter. There is no hemorrhage or hydrocephalus. Some inflammatory changes are present in the mastoid air ce lls left greater than right. Orbits show symmetric appearance. There are normal vascular flow voids. Cerebellopontine angles, corpus callosum, pituitary, cervical medullary junction are within normal li mits. IMPRESSION: Subacute infarct left parietal lobe as described. Age-related changes of atrophy and dinkey skinner bola small vessel ischemia. Additional findings above.
[2020-06-09 17:34] LABS: Glucose,Whole Blood 201 mg/dL (75-99)
[2020-06-09] MEDS: HEPARIN SOD,PORK IN 0.45% NACL 25,000 UNIT in 0.45% NACL 1 250ML.BAG IV SCH (17:44)
[2020-06-09] MEDS: ATORVASTATIN 40 MG TAB PO SCH (20:07)
[2020-06-09] MEDS: lisinopriL 20 MG TAB PO SCH (20:07)
[2020-06-09 21:17] LABS: Glucose,Whole Blood 184 mg/dL (75-99)
[2020-06-10 06:18] LABS: Glucose,Whole Blood 257 mg/dL (75-99)
[2020-06-10] MEDS: INSULIN ASPART (NovoLOG) 100 UNIT/ML VIAL SQ SCH ×2 (06:42→11:53)
[2020-06-10 07:20] LABS: Basophils % (A) 1 %; Eosinophils # (A) 0.2 k/uL (0-0.7); Eosinophils % (A) 2 %; HCT 37.1 % (34.0-46.0); HGB 12.5 gm/dL (11.4-16.0); Lymphocytes # (A) 1.4 k/uL (1.0-4.8); Lymphocytes % (A) 19 %; MCHC 33.7 g/dL (31.0-37.0); MCV 86.1 fL (80.0-100.0); Mean Platelet Volume 6.9; Monocytes # (A) 0.4 k/uL (0-1.0); Monocytes % (A) 6 %; Neutrophils # (A) 5.3 k/uL (1.3-7.7); Neutrophils % (A) 70 %; Platelet Count 328 k/uL (150-450); RBC 4.31 m/uL (3.80-5.40); RDW 13.9 % (11.5-15.5); WBC 7.6 k/uL (3.8-10.6)
[2020-06-10 07:49] LABS: Calcium 9.5 mg/dL (8.4-10.2); Magnesium 1.6 mg/dL (1.6-2.3); Potassium 3.5 mmol/L (3.5-5.1)
[2020-06-10] MEDS: FAMOTIDINE 20 MG TAB PO SCH (08:17)
[2020-06-10] MEDS: amLODIPine 2.5 MG TAB PO SCH (08:18)
[2020-06-10] MEDS: METOPROLOL TARTRATE 50 MG TAB PO SCH (08:18)
[2020-06-10] MEDS ORDERED: ASPIRIN 81 MG PO SCH (09:00)
[2020-06-10] MEDS ORDERED: APIXABAN 5 MG TAB PO SCH (09:00)
[2020-06-10] MEDS ORDERED: glipiZIDE 10 MG TAB PO SCH (09:00)
--- NOTE | 2020-06-10 10:34 | P.PN ---
Subjective Progress Note Date: 06/10/20 This is a pleasant 75-year-old female past medical history significant for hypertension, diabetes mellitus, dyslipidemia and former nicotine dependence. 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 We have been asked to see in [facility] for new onset atrial fibrillation. She presented to the hospital with symptoms of right leg weakness that started approximately 2 days ago. Upon arrival to the emergency department CT was performed that was normal. MRI of the brain showed subacute infarct in the left parietal lobe. She has been seen in evaluation by neurology and diagnosed with an acute CVA probably involving the left CALIN vascular territory. Most likely cardioembolic in nature. EKG on arrival revealed atrial fibrillation with controlled ventricular rate with incomplete right bundle branch block and nonspecific abnormalities. She continues to be in atrial fibrillation with controlled ventricular rate. She denies symptoms of chest pain, shortness of breath, dizziness or palpitations. Blood pressure this morning 150/70 with a heart rate in the 70s, 99% on room air. Temperature 97.9. White blood cell count 7.6, hemoglobin 12.5, platelet count 328. Sodium 134, potassium 3.5, BUN 16, creatinine 0.8. Magnesium 1.6. Objective - Vital Signs Vital signs: Vital Signs Temp 97.9 F 06/10/20 08:15 Pulse 77 06/10/20 08:15 Resp 18 06/10/20 08:15 BP 152/73 06/10/20 08:15 Pulse Ox 99 06/10/20 08:15 Intake & Output 06/09/20 06/10/20 06/10/20 18:59 06:59 18:59 Intake Total 475.386 475 Output Total 800 200 Balance -324.614 275 Weight 54.8 kg Intake: Intake, IV Titration 350.386 Amount Heparin Sod,Pork in 0.45% 150.386 NaCl 25,000 unit In 0.45 % NaCl 1 250ml.bag @ 12 UNITS/KG/HR 6.641 mls/hr IV .Q24H APRYL Rx#: [id number] Magnesium Sulfate-D5w Pmx 200 1 gm In Dextrose/Water 1 100ml.bag @ 100 mls/hr IVPB Q1H APRYL Rx#: [id number] Oral 125 475 Output: Urine 800 200 Other: Voiding Method Bedside Commode Bedside Commode # Voids 3 - Exam PHYSICAL EXAMINATION Blood pressure 152/73 heart rate and 77 afebrile and maintaining oxygen satur ation on room air. CONSTITUTIONAL: No apparent distress. HEENT: Head is normocephalic. Pupils are equal, round. Sclerae anicteric. Mucous membranes of the mouth are moist. No JVD. No carotid bruit. CHEST EXAMINATION: Lungs are clear to auscultation. No chest wall tenderness is noted on palpation or with deep breathing. HEART EXAMINATION: Irregular rate and rhythm. S1, S2 heard. No murmurs, gallops or rub. ABDOMEN: Soft, nontender. Positive bowel sounds. EXTREMITIES: 2+ peripheral pulses, no lower extremity edema and no calf tenderness. NEUROLOGIC EXAMINATION: Patient is awake, alert and oriented x3. Still has some mild weakness in the right leg. - Labs CBC & Chem 7: 06/10/20 06:48 06/10/20 06:48 Labs: Abnormal Lab Results - Last 24 Hours (Table) 06/09/20 06/09/20 06/09/20 Range/Units 05:32 12:01 17:23 APTT (22.0-30.0) sec Sodium (137-145) mmol/L Chloride (98-107) mmol/L Glucose (74-99) mg/dL POC Glucose (mg/dL) 286 H 201 H (75-99) mg/dL Hemoglobin A1c 9.3 H (4.0-6.0) % 06/09/20 06/10/20 06/10/20 Range/Units 21:09 06:16 06:48 APTT (22.0-30.0) sec Sodium 134 L (137-145) mmol/L Chloride 96 L (98-107) mmol/L Glucose 246 H (74-99) mg/dL POC Glucose (mg/dL) 184 H 257 H (75-99) mg/dL Hemoglobin A1c (4.0-6.0) % 06/10/20 Range/Units 06:48 APTT 55.3 H (22.0-30.0) sec Sodium (137-145) mmol/L Chloride (98-107) mmol/L Glucose (74-99) mg/dL POC Glucose (mg/dL) (75-99) mg/dL Hemoglobin A1c (4.0-6.0) % Assessment and Plan Plan: ASSESSMENT AND PLAN #1 New onset paroxysmal atrial fibrillation with controlled ventricular rate #2 Acute CVA #3 Hypomagnesemia #4 Hypertension #Dyslipidemia #6 Diabetes mellitus Plan We will replace the patient's magnesium this morning. Patient will need to be initiated on long-term anticoagulation if cleared by neurology. Then we will start her on Eliquis 5 mg one tablet by mouth twice a day. DNP note has been reviewed, I agree with a documented findings and plan of care. Patient was seen and examined.
[2020-06-10] MEDS: MAGNESIUM SULFATE-D5W PMX 1 GM in DEXTROSE/WATER 1 100ML.BAG IVPB SCH ×2 (10:53→11:52)
[2020-06-10 11:14] VITALS: BMI 19.5
[2020-06-10 11:39] LABS: Glucose,Whole Blood 254 mg/dL (75-99)
--- NOTE | 2020-06-10 12:27 | P.DS ---
Providers Date of admission: 06/08/20 15:55 Expected date of discharge: 06/10/20 Attending physician: Shahbaz Brand MD Consults: 06/08/20 15:56 Consult Physician Routine Consulting Provider: Navid Coley Consult Reason/Comments: CVA, new a-fib Do you want consulting provider notified?: Yes Consult Physician Urgent Consulting Provider: Ivory Dimas Consult Reason/Comments: CVA Do you want consulting provider notified?: Already Contacted 06/10/20 07:47 Consult Physician Routine Consulting Provider: Edgar Zhou Consult Reason/Comments: stroke Do you want consulting provider notified?: Yes Primary care physician: Stated None Hospital Course: This is a 75-year-old female with past medical history noted below presented to the emergency room with right lower extremity weakness. Patient was evaluated in the ER and admitted to the hospital for further management of her medical problems noted below. 1. Subacute infarct involving the left parietal lobe: Noticed on MRI of the brain. Patient was seen and evaluated by neurology. Started on aspirin 81 mg and Lipitor 40 mg daily. Computed tomography scan of the head in the ER with no acute findings. Echocardiogram showed preserved ejection fraction with no intracardiac source for possible stroke. 2. New onset atrial fibrillation, rate well controlled. Started on anticoagulation with IV heparin and then transitioned to E;iquis. Continue home dose of metoprolol 100 mg twice daily. Thyroid function test within normal range. Patient was seen and evaluated by cardiology, appreciate recommendations. 3. Hypertensive urgency, blood pressure better controlled. Continue current regimen. 4. Type 2 diabetes, not well controlled. A1c 9.1. Patient follow-up with endocrinology in the office. Glipizide dose increased to 10 mg 3 times a day with meals. Continue metformin twice daily. Follow-up in the office as directed for further management. 5. Hyperlipidemia, on Zocor at home. I would switch her to Lipitor 40 mg at bedtime. fasting lipid profile showed total cholesterol of 135, LDL 80 6. Essential hypertension 7. Hypomagnesemia, replaced. Repeat Work in the morning 8. CODE STATUS: Patient was like to be a full code. Patient's is a Buddhist and does not want any blood transfusions whatsoever. Patient was seen and evaluated by PT/OT. She was offered to be evaluated for inpatient rehab but her was adamant to refuse and want her to go home. She'll be discharged home in a stable condition. She will have home care and PT set up. For further details about this hospitalization please refer to the electronic chart. Patient Condition at Discharge: Fair Plan - Discharge Summary Discharge Rx Participant: No New Discharge Prescriptions: New Aspirin 81 mg PO DAILY #30 chew Apixaban [Eliquis] 5 mg PO BID #60 tab Atorvastatin [Lipitor] 40 mg PO HS #30 tab Continue lisinopriL 40 mg PO HS amLODIPine BESYLATE [Norvasc] 2.5 mg PO DAILY metFORMIN HCL 1,000 mg PO BID Metoprolol Tartrate [Lopressor] 100 mg PO BID Changed glipiZIDE [Glucotrol] 10 mg PO AC-TID #90 tab Discontinued Simvastatin [Zocor] 20 mg PO HS Discharge Medication List Metoprolol Tartrate [Lopressor] 100 mg PO BID 06/08/20 [History] amLODIPine BESYLATE [Norvasc] 2.5 mg PO DAILY 06/08/20 [History] lisinopriL 40 mg PO HS 06/08/20 [History] metFORMIN HCL 1,000 mg PO BID 06/08/20 [History] Apixaban [Eliquis] 5 mg PO BID #60 tab 06/10/20 [Rx] Aspirin 81 mg PO DAILY #30 chew 06/10/20 [Rx] Atorvastatin [Lipitor] 40 mg PO HS #30 tab 06/10/20 [Rx] glipiZIDE [Glucotrol] 10 mg PO AC-TID #90 tab 06/10/20 [Rx] Follow up Appointment(s)/Referral(s): [facility], [NON-STAFF] - None,Stated [Primary Care Provider] - 1-2 days Papo Moran [STAFF PHYSICIAN] - 1 Week Discharge Disposition: HOME WITH HOME HEALTH SERVICES
[2020-06-10 12:36] VITALS: BP 151/72; PULSE 81; TEMP 98.1
--- NOTE | 2020-06-10 16:55 | P.PN ---
Subjective Progress Note Date: 06/10/20 Patient was seen for a follow-up via telemedicine. Patient states her right leg remains the same. Denies any symptoms in the arms, facial region, speech. No headache at all. Her vision is fine. Objective - Vital Signs Vital signs: Vital Signs Temp 98.1 F 06/10/20 11:50 Pulse 81 06/10/20 11:50 Resp 18 06/10/20 11:50 BP 151/72 06/10/20 11:50 Pulse Ox 97 06/10/20 11:50 Intake & Output 06/09/20 06/10/20 06/10/20 18:59 06:59 18:59 Intake Total 475.386 475 690 Output Total 800 200 Balance -324.614 275 690 Weight 54.8 kg 54.8 kg Intake: Intake, IV Titration 350.386 Amount Heparin Sod,Pork in 0.45% 150.386 NaCl 25,000 unit In 0.45 % NaCl 1 250ml.bag @ 12 UNITS/KG/HR 6.641 mls/hr IV .Q24H APRYL Rx#: [id number] Magnesium Sulfate-D5w Pmx 200 1 gm In Dextrose/Water 1 100ml.bag @ 100 mls/hr IVPB Q1H APRYL Rx#: [id number] Oral 125 475 690 Output: Urine 800 200 Other: Voiding Method Bedside Commode Bedside Commode # Voids 3 1 - Exam On examination her mental status, speech and language functions are normal. Cranial nerves II through XII are normal. On muscle strength testing there is no drift and the strength is completely normal in the arms distally and proximally. In the lower limbs, her left leg is normal. Right ankle is now back to normal, but right hip flexion is 4+. Patient has withdrawals to plantar stimulation. Patient has ataxia for [id number] testing only on the right, but not on the left. sensations are equal with no neglect. Gait deferred. - Labs CBC & Chem 7: 06/10/20 06:48 06/10/20 06:48 Labs: Abnormal Lab Results - Last 24 Hours (Table) 06/09/20 06/09/20 06/10/20 Range/Units 17:23 21:09 06:16 APTT (22.0-30.0) sec Sodium (137-145) mmol/L Chloride (98-107) mmol/L Glucose (74-99) mg/dL POC Glucose (mg/dL) 201 H 184 H 257 H (75-99) mg/dL 06/10/20 06/10/20 06/10/20 Range/Units 06:48 06:48 11:37 APTT 55.3 H (22.0-30.0) sec Sodium 134 L (137-145) mmol/L Chloride 96 L (98-107) mmol/L Glucose 246 H (74-99) mg/dL POC Glucose (mg/dL) 254 H (75-99) mg/dL Assessment and Plan Assessment: * Acute CVA, 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 Event is most likely cardioembolic from new onset atrial fibrillation * Hypertension * Diabetes Plan: * Patient started on Apixaban 2.5 mg twice a day and aspirin 81 mg. Her examination shows improved strength in the right lower extremity as compared to yesteday examination. * MRI brain without contrast revealed subacute small infarct left parietal lobe, in the distribution of left CALIN vascular territory. No hemorrhagic conversion. * 2-D echo showed atrial fibrillation. Left-ventricular size is normal. Borderline concentric LVH. Overall left ventricular systolic function is normal with EF 55-60%. Normal left atrial size. * Carotid Doppler showed 50-69% left ICA stenosis, moderate degree. Recommend follow-up ultrasound in one year. Continue aspirin 81 mg. * Pepcid for gastric ulcer prophylaxis. * Hemoglobin A1c 9.3 indicating poorly controlled diabetes. Suggest aggressive control of diabetes to target A1c <7.0. * lipid panel with cholesterol 135, LDL 80, HDL 36 and triglycerides 95. Continue Lipitor 40 mg. * PT OT for right leg weakness. * Neurologically clear for discharge.
== END 2020-06-10 14:03 | disposition home health service (06) | DRG 66 ==
LOC: EC 13:37 → 3SCARD 15:55
PROVIDERS: ADMIT Internal Medicine; ATTEND Internal Medicine
DX: I63.89 Other cerebral infarction (principal); I48.0 Paroxysmal atrial fibrillation; I11.9 Hypertensive heart disease without heart failure; E11.42 Type 2 diabetes mellitus with diabetic polyneuropathy; J43.9 Emphysema, unspecified; G83.11 Monoplegia of lower limb affecting right dominant side; E11.65 Type 2 diabetes mellitus with hyperglycemia; Z20.822 Contact with and (suspected) exposure to COVID-19; R29.701 NIHSS score 1; I16.0 Hypertensive urgency; E78.5 Hyperlipidemia, unspecified; I65.22 Occlusion and stenosis of left carotid artery; I45.10 Unspecified right bundle-branch block; E83.42 Hypomagnesemia; Z79.899 Other long term (current) drug therapy; Z79.84 Long term (current) use of oral hypoglycemic drugs; Z90.710 Acquired absence of both cervix and uterus; Z87.891 Personal history of nicotine dependence; Z88.0 Allergy status to penicillin
CPT/HCPCS: 36415; 70450; 70551; 71046; 80048; 80053; 80061; 83036; 83735; 84443; 84484; 85025; 85610; 85730; 87635; 93005; 93306; 93880; 96360; 99291

== ENCOUNTER → 2022-05-30 | Outpatient (CLI) | payer MEDICARE ==
--- NOTE | 2022-05-30 16:43 | CT ---
EXAMINATION TYPE: CT brain wo/w con CT DLP: 2108.4 mGycm, Automated exposure control for dose reduction was used. DATE OF EXAM: 05/30/2022 4:25 PM COMPARISON: CT 05/31/2020. CLINICAL INDICATION:Female, 77 years old with history of R41.82 altered mental status unsp; , altered mental status TECHNIQUE: Axial CT images of the brain were obtained with coronal and sagittal reformats created and reviewed. Contrast used:70ML mL of Isovue 300 without and with IV Contrast, Oral contrast used: none. FINDINGS: Extra-axial spaces: No abnormal extra-axial fluid collections. Ventricular system: Dilatation in proportion to cerebral atrophy. Cerebral parenchyma: Cerebral atrophy. Encephalomalacia of the left frontal lobe near the skull verte x. No acute intraparenchymal hemorrhage or mass effect. The remainder of the simpson-white junctions ar e well differentiated. Scattered hypoattenuating areas are seen within the white matter. No abnormal enhancement is seen after the administration of intravenous contrast. Cerebellum: Unremarkable. Mass effect: No evidence of midline shift. Intracranial vasculature: Atherosclerotic calcifications of the intracranial vessels. Soft tissues: Normal. Calvarium/osseous structures: No depressed skull fracture. Paranasal sinuses and mastoid air cells: Clear. Visualized orbits: Bilaterally aphakia. IMPRESSION: 1. No acute intracranial process and no evidence to suggest intracranial mass. 2. Remote left frontal lobe injury with encephalomalacia 3. Nonspecific white matter changes.
== END | disposition home or self-care (01) ==
LOC: RADCTMAIN 14:37
PROVIDERS: ATTEND Family Medicine
DX: Z01.812 Encounter for preprocedural laboratory examination (principal); G93.89 Other specified disorders of brain; R41.82 Altered mental status, unspecified
CPT/HCPCS: 82565; 84520; 70470; 36415; Q9967

== ENCOUNTER → 2022-12-18 | Outpatient (CLI) | payer MEDICARE ==
[2022-12-18 17:31] LABS: Chol/HDL Ratio 4.24 Ratio; LDL Cholesterol,Calculated 103.8 mg/dL (0.0-131.0)
[2022-12-18 20:26] LABS: Blood Urea Nitrogen 18.4 mg/dL (9.0-27.0); Chloride 94 mmol/L (96-109); Glucose 159 mg/dL (70-110); Potassium 4.9 mmol/L (3.5-5.5); Sodium 132 mmol/L (135-145)
[2022-12-18 20:27] LABS: ALT 14 U/L (8-44); AST 16 U/L (13-35); Albumin 4.2 d/dL (3.8-4.9); Albumin/Globulin Ratio 1.02 Ratio (1.60-3.17); Alkaline Phosphatase 70 U/L (41-126); Calcium 9.8 mg/dL (8.7-10.3); Carbon Dioxide 27.9 mmol/L (21.6-31.8); Globulin 4.1 d/dL (1.6-3.3); Total Bilirubin 0.6 mg/dL (0.3-1.2); Total Protein 8.3 d/dL (6.2-8.2)
[2022-12-18 23:35] LABS: Urine Creatinine 30.1 mg/dL (28.0-217.0)
== END | disposition home or self-care (01) ==
LOC: LABWHC1 09:00
PROVIDERS: ATTEND Internal Medicine Endocrinology, Diabetes & Metabolism
DX: E11.65 Type 2 diabetes mellitus with hyperglycemia (principal)
CPT/HCPCS: 36415; 80053; 80061; 82043; 82570; 83036; 84443

== ENCOUNTER → 2023-06-06 | Outpatient (CLI) | payer MEDICARE ==
[2023-06-06 15:39] LABS: INR 2.79 sec (0.93-1.11); Prothrombin Time 28.2 sec (9.9-11.9)
[2023-06-06 16:38] LABS: T4, Free (Free Thyroxine) 1.38 ng/dL (0.80-1.80)
== END | disposition home or self-care (01) ==
LOC: LABWHC1 08:24
PROVIDERS: ATTEND Psychiatry & Neurology Neurology
DX: L30.9 Dermatitis, unspecified (principal); R41.3 Other amnesia; R41.82 Altered mental status, unspecified
CPT/HCPCS: 36415; 82607; 82746; 84207; 84439; 84443; 85610